=== PATIENT | female | born 1990 | race Two or more races ===

== ENCOUNTER 2024-10-31 10:45 | Outpatient (CLI) | payer OTHER | END 2024-10-31 10:53 | disposition home or self-care (01) | LOC: SONOGRAMA 10:45 | PROVIDERS: ATTEND Obstetrics & Gynecology Gynecology | DX: N84.0 Polyp of corpus uteri (principal) ==

== ENCOUNTER 2024-12-15 06:06 | Day surgery (SDC) | payer OTHER ==
[~2024-12-15 06:06] MED LIST: PEPCID AC10 MG PO; ZYRTEC10 M3 PO
[2024-12-15] MEDS ORDERED: POVIDONE-IODINE 118 ML BOTT TOP ONE (06:57)
[2024-12-15] MEDS ORDERED: IBU600 MG PO (08:43)
== END 2024-12-15 15:30 | disposition home or self-care (01) ==
LOC: CIR.AMB 06:06
PROVIDERS: ATTEND Obstetrics & Gynecology Gynecology
DX: D25.0 Submucous leiomyoma of uterus (principal); N84.0 Polyp of corpus uteri